=== PATIENT | male | born 1945 | race Caucasian/White ===

== ENCOUNTER 2017-12-13 13:00 | Inpatient (IN) | payer MEDICARE, BC ==
[2017-12-20] MEDS ORDERED: CELECOXIB 100 MG CAPSULE PO ONE (06:00)
[2017-12-20] MEDS ORDERED: CEFAZOLIN 2 Gram 2 GM/50 ML BAG IVPB ONE (06:00)
[2017-12-20] MEDS ORDERED: MECLIZINE 25 MG TABLET PO ONE (06:00)
[2017-12-20] MEDS ORDERED: ACETAMINOPHEN 1,000 MG/100 ML BTL IV ONE (06:00)
[2017-12-20] MEDS ORDERED: FAMOTIDINE 20MG TABLET PO ONE (06:00)
[2017-12-20] MEDS ORDERED: METOCLOPRAMIDE 10 MG TABLET PO ONE (06:00)
[2017-12-20] MEDS ORDERED: NALOXONE 0.4 MG/1 ML VIAL IVP PRN (13:00)
[2017-12-20] MEDS ORDERED: ZOLPIDEM TARTRATE 5 MG TABLET PO PRN (13:00)
[2017-12-20] MEDS ORDERED: SENNOSIDES/DOCUSATE SODIUM UD CAPSULE PO PRN (13:00)
[2017-12-20] MEDS ORDERED: MAGNESIUM HYDROXIDE 30 ML UDC PO PRN (13:00)
[2017-12-20] MEDS ORDERED: METOCLOPRAMIDE HCL 10 MG/2 ML VIAL IVP PRN (13:00)
[2017-12-20] MEDS ORDERED: OXYCODONE HCL 5 MG TABLET PO PRN (13:00)
[2017-12-20] MEDS ORDERED: HYDROMORPHONE HCL 2 MG/ML VIAL IV PRN (13:00)
[2017-12-20] MEDS ORDERED: TRAMADOL HCL 50 MG TABLET PO PRN ×2 (13:00)
[2017-12-20] MEDS ORDERED: DIPHENHYDRAMINE HCL 25 MG CAPSULE PO PRN (13:00)
[2017-12-20] MEDS ORDERED: AL HYDROX/MAG HYDROX 30ML UD PO PRN (13:00)
[2017-12-20] MEDS ORDERED: ONDANSETRON HCL IV 4 MG/2 ML VIAL IVP PRN (13:00)
[2017-12-20] MEDS ORDERED: SEVOFLURANE 250 ML INH ONE (14:00)
[2017-12-20] MEDS ORDERED: ONDANSETRON HCL IV 4 MG/2 ML VIAL IVP ONE (14:00)
[2017-12-20] MEDS ORDERED: DEXAMETHASONE 4 MG/ML 1ML VIAL IVP ONE (14:00)
[2017-12-20] MEDS ORDERED: ROCURONIUM BROMIDE 50MG/5ML VIAL IV ONE (14:00)
[2017-12-20] MEDS ORDERED: FENTANYL PF 100MCG/2ML VIAL IV ONE (14:00)
[2017-12-20] MEDS ORDERED: HYDROMORPHONE HCL 2 MG/ML VIAL IV ONE ×2 (14:00→14:10)
[2017-12-20] MEDS ORDERED: NEOSTIGMINE 1 MG/1 ML,10ML VIAL IV ONE (14:00)
[2017-12-20] MEDS ORDERED: KETOROLAC 30 MG/ML VIAL IVP ONE (14:00)
[2017-12-20] MEDS ORDERED: LIDOCAINE 2% MDV (20MG/ML) 20ML VIAL IV ONE (14:00)
[2017-12-20] MEDS ORDERED: SUCCINYLCHOLINE 20 MG/ML 10ML IVP ONE (14:00)
[2017-12-20] MEDS ORDERED: PROPOFOL 10 MG/ML VIAL IV ONE (14:00)
[2017-12-20] MEDS ORDERED: GLYCOPYRROLATE 0.2 MG/ML ML IV ONE (14:00)
[2017-12-20] MEDS: RINGERS SOLUTION,LACTATED 1,000 ML IV SCH (14:40)
[2017-12-20] MEDS: ACETAMINOPHEN 1,000 MG/100 ML BTL IV SCH ×2 (15:34→21:23)
--- NOTE | 2017-12-20 15:51 | Physical Therapy Tx Note ---
Physical Therapy Tx Note - Treatment Note Tolerated: Other Total Time Spent With Patient: 5 Physical Therapy Tx Note: Detail (Pt sleeping soundly, unable to stay awake. Spoke w/pt's who was present in room; explained therapy visits scheduled for tomorrow. She plans to be present for those.) Physical Therapy Plan: Pt to be seen twice tomorrow for bed mobility, transfer and gait training, and instruction in home exercise program.
[2017-12-20] MEDS: OXYCODONE HCL 5 MG TABLET PO PRN ×2 (17:45→19:24)
[2017-12-20] MEDS: CEFAZOLIN 2 Gram 2 GM/50 ML BAG IVPB SCH (18:52)
[2017-12-20] MEDS: ASPIRIN 325 MG TAB ENTERIC-COATED PO SCH (21:23)
[2017-12-21] MEDS: OXYCODONE HCL 5 MG TABLET PO PRN ×2 (02:31→07:43)
[2017-12-21] MEDS: CEFAZOLIN 2 Gram 2 GM/50 ML BAG IVPB SCH ×2 (03:02→10:48)
[2017-12-21] MEDS: ACETAMINOPHEN 1,000 MG/100 ML BTL IV SCH (03:35)
--- NOTE | 2017-12-21 07:14 | RADIOLOGY REPORT ---
EXAM: LEFT HIP, SINGLE VIEW HISTORY: POSTOP LEFT THAD. TECHNIQUE: A single AP view of the left hip was obtained. Comparison: None. FINDINGS: The patient is postop left THAD. The components appear in good position with no dislocation evident in the AP projection. A surgical drain is in place. Skin type allegra laterally. Some air in the soft tissues which is all presumably postoperative in nature. IMPRESSION: POSTOP LEFT THAD WITH THE COMPONENTS APPEARING IN GOOD POSITION. JOB NUMBER: [id number] [facility]
[2017-12-21] MEDS: CELECOXIB 100 MG CAPSULE PO SCH ×2 (09:24→09:52)
--- NOTE | 2017-12-21 09:50 | Operative Note ---
DATE OF SURGERY: 12/20/2017 Surgeon: Mg Pelletier DO PREOPERATIVE DIAGNOSIS: Primary osteoarthritis of the left hip. POSTOPERATIVE DIAGNOSIS: Primary osteoarthritis of the left hip. OPERATION: Left total hip arthroplasty. PROCEDURE: This 72-year-old male was taken to the operating room and placed in the supine position on the operating room table where general anesthesia was induced. He was then placed in the right lateral decubitus position and bolstered perpendicular to the floor. The left hip was then prepped with Hibiclens and draped in the usual sterile fashion. A lateral hip incision was made dissecting down through the skin and subcutaneous tissue. Hemostasis obtained with the electrocautery. The tensor was divided in line with the skin incision and the self-retaining hip retractor was placed. Short rotators were easily identified. These were then amputated to the neck of the femur. Steinmann pins were used as retractors, one superiorly, one posterosuperiorly, and one posteroinferiorly for excellent visualization of the acetabulum. A erika was made on the greater trochanter and this was measured to the proximal pin and this distance restored at the completion of the procedure. The hip was then dislocated and the neck amputated, head removed. In the base of the condyloid notch, we removed soft tissue debris and then started reaming with a size 48 mm reamer, reaming in 2 mm increments to a size 52 and then 1 mm increments to a size 56 to the base of the condyloid notch. Osteophytes were removed from the posteroinferior and anteroinferior aspect of the acetabulum. Trial liner was subsequently placed and this was seen to be the appropriate size. Subsequently, a size 56 mm Trident cup was impacted into place at 45 degrees of abduction and 20 degrees of anteversion. The trial liner was subsequently placed. We then directed our attention to the proximal femur. Box osteotome was used to cut the proximal femur and then using a paint mixer hand, this easily was passed down the center of the femoral shaft followed by an alternating ream/broach technique utilizing first a 5, then 6, 7, and finally an 8 with the 6 broach countersunk. We did use a calcar reamer to smooth the calcar. With the [address], we had a nice secure tight fit and trial reduction as accomplished with a 0 head. This restored anatomic length and excellent stability with wide abduction and external rotation, flexion to 115 with internal rotation to 70 degrees with no evidence of instability. The trial components were then removed and the wound copiously irrigated with pulse lavage and lactated Ringer's solution. A size 36 mm inside diameter X3 liner was impacted into place followed by the insertion of the femoral component size 8 collared Secur-Fit femur and a 36 mm Biolox head plus 0 was used. The hip was then reduced and again taken through range of motion and found to be stable. The short rotators were then reattached to the posterior aspect of the greater trochanter using #5 Ethibond suture through drill holes to the greater trochanter, and this restored the soft tissue envelope. The drain was placed through a separate stab incision. The tensor was reapproximated with #2 Vicryl, the subcutaneous tissue closed with 0 Vicryl, and the skin was stapled. Sterile dressings were applied, and the patient taken to the recovery room in satisfactory condition. GROSS PATHOLOGY: This patient demonstrated osteoarthritis of the left hip with osteophytes present anteroinferiorly and posteroinferiorly. Final components inserted were Labolt size 8 Secur-Fit collared femoral component, a 56 mm Trident cup, a 36 mm X3 liner, and a 36 mm Biolox head plus 0 was used. CC: DO RAFI Pena
[2017-12-21] MEDS: PSYLLIUM HUSK/ASPARTAME 3.4 GM POWD.PACK PO SCH (09:53)
[2017-12-21] MEDS: ASPIRIN 325 MG TAB ENTERIC-COATED PO SCH (09:59)
[2017-12-21] MEDS ORDERED: FEXOFENADINE 180 MG PO SCH (10:00)
--- NOTE | 2017-12-21 10:30 | Rehab Evaluation ---
Patient Information - Patient Information Diagnosis: Left total hip arthroplasty Ordered Treatment: OT Evaluate and Treat Status: Initial Evaluation Surgery: Yes Date of Surgery: 12/20/17 (L THAD) Past Medical/Surgical Hx: PAST MEDICAL/SURGICAL HISTORY Past Surgical History right foot sx-tarsal tunnel 2008; right knee scope; colonoscopy; tonsillectomy. PMH - Respiratory Hx Respiratory Disorders Yes Hx Chronic Obstructive Yes: dx "slight COPD 1 yr ago" Pulmonary Disease (COPD) Hx Pneumonia Yes: 1 yr ago Hx of Productive Cough Yes: smokers cough Comment: seasonal allergies PMH - Cardiovascular Hx Cardiovascular Disorders Yes Hx Deep Vein Thrombosis Yes: 2008 Hx Hypertension Yes: slightly -no meds Exercise Tolerance Fair Comment: high cholesterol PMH - Neuro Hx Neurological Disorders Yes Hx Weakness Yes: in hips PMH - GI Hx Gastrointestinal Disorders Yes Hx Diverticulitis diverticulosis in sigmoid colon Hx Gastroesophageal Reflux Yes PMH - Hx Genitourinary Disorders No PMH - Endocrine Hx Endocrine Disorders No PMH - Musculoskeletal Hx Musculoskeletal Disorders Yes Hx Arthritis Yes: hips PMH - Psych Hx Psychiatric Problems No PMH - Hematology/Oncology Hx Hematology/Oncology Yes Disorders Hx Cancer Yes: Dr 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 He has 3 steps at the entrance by a landing, no railings. He has a tub/shower combination with an extended tub bench and grab bars as well as an elevated toilet with grab bars. His spouse is responsible for home mgmt, meal prep and laundry. He owns a 2 wheeled walker and cane.) Social History: Detail (Pt has a supportive spouse who assists him with ADLs as needed.) Precautions: [place], Fall, Other (hip precautions.) - Time With Patient Total Time Spent With Patient (Min): 45 Treatment Procedures: Detail (OT eval low complexity) Subjective Information - Subjective Information Per Patient Objective Data - Pain Pain Present: Yes (04/21) - Mental Status Patient Orientation: Oriented x3 - Visual Perception Appears within normal limits for therapeutic activities - ROM Within normal limits (UE AROM WNL) - Strength/Tone Within normal limits (Samy UE strength WNL) - Coordination Appears within normal limits for therapeutic activities - Bed Mobility Independent (Ind with supine to sit) - Transfers Independent (Ind with sit to stand from EOB and commode.) - Balance Balance Sitting: Good Balance Standing: Good - Sensation Intact - Gait Detail (Pt ambulating in room with 2 wheeled walker.) - ADL's/IADL's Detail (Pt educated re: use of adaptive equipment for LE dressing and he was able to demonstrate doffing slipper socks, donning sweatpants, socks and tennis shoes with use of network control technician and sock aid while maintaining hip precautions. Pt purchased network control technician and sock aid for home. Pt educated re: tub transfer safety and he an spouse were able to verbalize understanding.) Therapy Assessment - Therapy Assessment Detail (Pt IND with LE dressing using adaptive equipment while maintaining hip precautions.) Problem List - Problem List Occupational Therapy Problem List: Detail (No current IP OT problems identified. ) Goals - Goals Occupational Therapy Goals: No current IP OT goals identified. Prognosis - Prognosis Good Plan - Plan Physical Therapy Plan: Pt to be seen twice tomorrow for bed mobility, transfer and gait training, and instruction in home exercise program. Occupational Therapy Plan: No further IP OT recommended. Thank you for this referral.
--- NOTE | 2017-12-21 10:33 | Rehab Evaluation ---
Patient Information - Patient Information Diagnosis: L hip OA Ordered Treatment: PT Evaluate and Treat Status: Initial Evaluation Surgery: Yes (L THAD) Date of Surgery: 12/20/17 Past Medical/Surgical Hx: PAST MEDICAL/SURGICAL HISTORY Past Surgical History right foot sx-tarsal tunnel 2008; right knee scope; colonoscopy; tonsillectomy. PMH - Respiratory Hx Respiratory Disorders Yes Hx Chronic Obstructive Yes: dx "slight COPD 1 yr ago" Pulmonary Disease (COPD) Hx Pneumonia Yes: 1 yr ago Hx of Productive Cough Yes: smokers cough Comment: seasonal allergies PMH - Cardiovascular Hx Cardiovascular Disorders Yes Hx Deep Vein Thrombosis Yes: 2008 Hx Hypertension Yes: slightly -no meds Exercise Tolerance Fair Comment: high cholesterol PMH - Neuro Hx Neurological Disorders Yes Hx Weakness Yes: in hips PMH - GI Hx Gastrointestinal Disorders Yes Hx Diverticulitis diverticulosis in sigmoid colon Hx Gastroesophageal Reflux Yes PMH - Hx Genitourinary Disorders No PMH - Endocrine Hx Endocrine Disorders No PMH - Musculoskeletal Hx Musculoskeletal Disorders Yes Hx Arthritis Yes: hips PMH - Psych Hx Psychiatric Problems No PMH - Hematology/Oncology Hx Hematology/Oncology Yes Disorders Hx Cancer Yes: Dr Omalley took 2 spots-top of head & back-not melanoma Premorbid Status: Detail (Patient was previously IND with all mobility and transfers.) Social History: Detail (Patient lives in a one story home with his . There is 1 step to a landing and another step to enter the home with no hand rails. The patient has a tub/shower combination, and an elevated toilet in the bathroom. The patient owns a front wheeled walker, cane, and shower bench.) Precautions: [place], Fall, Other (WBAT on L LE. Hip precautions.) - Time With Patient Total Time Spent With Patient (Min): 30 Treatment Procedures: Detail (Initial evaluation, gait training, and exercise education.) Subjective Information - Subjective Information Per Patient (Patient was lying supine in bed upon arrival with complaints of 4/ 10 L hip pain.) Objective Data - Pain Pain Present: Yes Pain Intensity: 4 Pain Scale Used: Numeric (1 - 10) - Mental Status Patient Orientation: Oriented x3 - Visual Perception Appears within normal limits for therapeutic activities - ROM Not within normal limits (L hip ROM is limited due to status post surgery.) - Strength/Tone Not within normal limits (Patient had functional strength during ambulation, L hip strength is limited due to status post surgery.) - Bed Mobility Independent (Patient was IND with supine to and from sit transfers while following hip percautions.) - Transfers Independent (Patient was IND with sit to and from stand transfers.) - Balance Balance Sitting: Good Balance Standing: Fair - Gait Detail (Patient ambulated approx. 100' using a front wheeled walker and supervision for safety. Patient also ambulated a flight of 3 stairs using a folded walker, hand rail and supervision for safety. Patient required education on proper technique. WBAT on L LE.) Therapy Assessment - Therapy Assessment Detail (Evaluation was of low complexity due to stable condition. Patient was IND with all mobility and transfers. Patient understands hip precautions. Feel patient will progress well with continued PT. Patient was left lying supine in bed with call light in reach.) Patient Education - Patient Education Teaching Topic: Exercise/Activity (ankle pumps, heel slides, quad sets, glut sets, hamstring sets, hip ABD.), Precautions Response: Return Demonstration, Verbalize Understanding Teaching Method: Discussion, Demonstration Teaching Recipient: Patient Barriers To Learning: Age Related Problem List - Problem List Physical Therapy Problem List: Detail (1) L hip ROM 2) L hip strength) Goals - Goals Physical Therapy Goals: Patient has met all IP PT goals. Prognosis - Prognosis Good Plan - Plan Physical Therapy Plan: Patient has met all IP PT goals and will be discharged to OP PT.
[2017-12-21] MEDS: RINGERS SOLUTION,LACTATED 1,000 ML IV SCH (11:23)
[2017-12-21] MEDS ORDERED: OXYCODONE HCL/APAP 5MG/325MG TABLET PO PRN ×2 (13:00)
[2017-12-21] MEDS ORDERED: ACETAMINOPHEN 325 MG TAB PO PRN (13:00)
--- NOTE | 2017-12-21 16:00 | Discharge Summary ---
DATE OF ADMISSION: 12/20/2017 DATE OF DISCHARGE: 12/21/2017 ADMITTING DIAGNOSIS: Osteoarthritis of the left hip. DISCHARGE DIAGNOSIS: Osteoarthritis of the left hip. OPERATIVE PROCEDURE: Elective left total hip arthroplasty. DESCRIPTION: This 72-year-old male was taken to the operating room for elective total hip arthroplasty and tolerated the operative procedure well. He cleared physical therapy and was ready for discharge. His pain was well controlled. He showed no physical examination evidence of complication. He will be discharged today and he was instructed to wear his MARTIN hose during the day and remove them at night. He will take aspirin 325 mg daily for 2 weeks. He was given a prescription for Percocet 5/325 one every 6 hours as necessary for pain, and he was given 40. Routine wound care instructions were given. He will follow up in the office in 2 weeks. Should he have any problems prior to being seen, he was instructed to call my office. RAFI
== END 2017-12-21 13:07 | disposition home or self-care (01) | DRG 470 ==
LOC: MEDSURG 12-20 08:19
PROVIDERS: ADMIT Orthopaedic Surgery; ATTEND Orthopaedic Surgery
PROC: 0SRB02A Replacement of Left Hip Joint with Metal on Polyethylene Synthetic Substitute, Uncemented, Open Approach (ICD-10-PCS; principal; 2017-12-20 10:30)
DX: M16.12 Unilateral primary osteoarthritis, left hip (principal); J44.9 Chronic obstructive pulmonary disease, unspecified; E78.00 Pure hypercholesterolemia, unspecified; Z86.718 Personal history of other venous thrombosis and embolism; F17.210 Nicotine dependence, cigarettes, uncomplicated
CPT/HCPCS: 90686; 94760; C1776; J0330; J1885; J2405; J2710